=== PATIENT | male | born 1950 | race Caucasian/White ===

== ENCOUNTER 2024-01-09 09:52 | Day surgery (SDC) | payer MEDICARE ==
[~2024-01-09 09:52] MED LIST: Lactated Ringers 1,000 ML IV PRN
[2024-01-09] MEDS ORDERED: Midazolam 1 MG/ML 2 ML SDV IV ONE (09:53)
[2024-01-09] MEDS ORDERED: fentaNYL 100 MCG/2 ML SDV IV ONE (09:53)
[2024-01-09] MEDS: Sodium Chloride 0.9% 10 ML Syringe FLUSH PRN (10:50)
[2024-01-09] MEDS: acetaZOLAMIDE 500 MG Cap.ER PO ONE (12:12)
== END 2024-01-09 12:47 | disposition home or self-care (01) ==
LOC: FB.SDS 09:52
PROVIDERS: ATTEND Ophthalmology
DX: H25.9 Unspecified age-related cataract (principal); M35.00 Sjogren syndrome, unspecified; M31.19 Other thrombotic microangiopathy; I25.10 Atherosclerotic heart disease of native coronary artery without angina pectoris; I10 Essential (primary) hypertension; E78.5 Hyperlipidemia, unspecified; Z79.899 Other long term (current) drug therapy; Z79.4 Long term (current) use of insulin; Z87.891 Personal history of nicotine dependence
CPT/HCPCS: 66984; A9270; J2250; J3010; J3490; 00142; 99100